=== PATIENT | female | born 1985 ===

== ENCOUNTER 2019-01-19 10:12 | Emergency (ER) | payer OTHER ==
[2019-01-19 10:15] VITALS: BMI 25.4
[2019-01-19 10:17] VITALS: BP 119/73; RESP 17; TEMP 98.8; O2SAT 97
[2019-01-19] MEDS ORDERED: Sodium Chloride 0.9% 1,000 ML IV STA (10:36)
--- NOTE | 2019-01-19 10:51 | ED PDOC ---
History of Present Illness History of Present Illness: 33yo female presents with multiple symptoms, including dizziness, nausea, fatigue, concern for persistent UTI which she had treated along with STI at [facility] in october. Denies fever, body aches, sore throat, vomiting. Notes mild diarrhea and headache. No sick contacts. No [facility] visit recently LMP currently HPI: Influenza Time Seen by Provider: 01/19/19 10:21 Chief Complaint: Cough, Cold, Congestion History Per: Patient Exam Limitations: no limitations Onset/Duration Of Symptoms: Waxing/Waning Symptoms include: cough, diarrhea. denies: fever, bodyaches, sore throat, vomiting, syncope, chest pain, difficulty breathing, seizure, blurry vision Sick Contacts (Context): None Hx Influenza Vaccination: No Risk factors for flu complications: Yes: chronic lung disease (mild asthma), Other (smoker) Past Medical History Reviewed: Historical Data, Nursing Documentation, Vital Signs Vital Signs: Last Vital Signs Temp 98.8 F 01/19/19 10:15 Pulse 92 H 01/19/19 10:15 Resp 17 01/19/19 10:15 BP 119/73 01/19/19 10:15 Pulse Ox 97 01/19/19 10:15 - Medical History PMH: Anemia, Anxiety, Asthma, Back Problems, Depression, Gastrointestinal Ulcer, Migraine, Seizures, Sexually Transmitted Disease (unknown disease) - Surgical History Surgical History: - Family History Family History: States: Unknown Family Hx - Social History Current smoker - smoking cessation education provided: Yes - Immunization History Hx Tetanus Toxoid Vaccination: No Hx Influenza Vaccination: No Hx Pneumococcal Vaccination: No - Home Medications Home Medications: Ambulatory Orders Medication Instructions Recorded Ondansetron ODT [Zofran ODT] 4 mg PO Q6 PRN #10 odt 01/19/19 - Allergies Allergies/Adverse Reactions: Allergies Allergy/AdvReac Type Severity Reaction Status Date / Time aspirin Allergy Verified 11/04/18 23:16 kiwi Allergy Verified 11/04/18 23:16 morphine Allergy Verified 11/04/18 23:16 Penicillins Allergy Verified 11/04/18 23:16 seafood Allergy Intermediate Uncoded 11/04/18 23:16 Review of Systems Constitutional: Negative for: Fever Eyes: Negative for: Conjunctivae Inflammation ENT: Negative for: Nose Discharge, Throat Pain, Throat Swelling Cardiovascular: Negative for: Palpitations Respiratory: Positive for: Cough. Negative for: Shortness of Breath Gastrointestinal: Negative for: Abdominal Pain Genitourinary Female: Positive for: Dysuria. Negative for: Frequency Musculoskeletal: Negative for: Neck Pain, Back Pain Skin: Negative for: Rash Neurological: Positive for: Dizziness. Negative for: Weakness, Numbness, Seizures, Headache Psych: Negative for: Psychosis, Suicidal ideation Physical Exam - Reviewed Nursing Documentation Reviewed: Yes Vital Signs Reviewed: Yes - Physical Exam Appears: Positive for: Non-toxic, No Acute Distress Head Exam: Positive for: ATRAUMATIC, NORMAL INSPECTION, NORMOCEPHALIC Skin: Positive for: Normal Color, Warm, DRY Eye Exam: Positive for: EOMI, Normal appearance, PERRL ENT: Positive for: Normal ENT Inspection Neck: Positive for: Normal, Painless ROM Cardiovascular/Chest: Positive for: Regular Rate, Rhythm Respiratory: Positive for: CNT, Normal Breath Sounds Pulses-Radial (L): 3+/4+ Pulses-Radial (R): 3+/4+ Gastrointestinal/Abdominal: Positive for: Soft. Negative for: Tenderness, Guarding Back: Positive for: Normal Inspection Extremity: Positive for: Normal ROM Neurological/Psych: Positive for: Awake, Alert, Normal Tone Medical Decision Making Medical Decision Making: workup for generalized weakness/malaise initiated r/o flu, sepsis, dehydration, cardiac arrhythmia, UTI, anemia vs other labs reviewed and no clinically significant findings flu neg CXR read by radiologist as negative EKG interpreted by me reeval 220p improved, watching TV without complaints. Explained may need further workup via PMD to r/o other chronic disorders. Indications for return to ER discussed. - Laboratory Results Result Diagrams: 01/19/19 10:55 01/19/19 10:55 - ECG ECG: Positive for: Interpreted By Me ECG Rhythm: Positive for: Normal QRS, Normal ST Segment, Sinus Rhythm. Negative for: ST/T Changes Rate: 75 O2 Sat by Pulse Oximetry: 97 Pulse Ox Interpretation: Normal Disposition - Clinical Impression Clinical Impression: Dizziness, Nausea - Patient ED Disposition Is Patient to be Admitted: No Counseled Patient/Family Regarding: Studies Performed, Diagnosis, Need For Followup, Rx Given - Disposition Disposition: Routine/Home Disposition Time: 14:20 Condition: STABLE Additional Instructions: Followup with PMD in 2-3 days. Return to ER for any worse or new symptoms. Prescriptions: Ondansetron ODT [Zofran ODT] 4 mg PO Q6 PRN #10 odt PRN Reason: Nausea/Vomiting Instructions: Dizziness, Nonvertigo, (DC) Forms: [employer] ([place]occan)
[2019-01-19 11:09] VITALS: PULSE 75
[2019-01-19 11:11] LABS: BASO # 0.1 K/uL (0.0-0.2); BASO % 1.5 % (0.0-2.0); EOS # 0.3 K/uL (0.0-0.7); EOS % 3.6 % (0.0-4.0); HEMOGLOBIN 13.6 g/dL (12.0-16.0); LYMPH # 2.7 K/uL (1.0-4.3); LYMPH % 33.8 % (20.0-40.0); MEAN CELL VOLUME 89.5 fl (81.0-99.0); MEAN CORPUSCULAR HEMOGLOBIN 30.1 pg (27.0-31.0); MEAN CORPUSCULAR HGB CONC 33.6 g/dL (33.0-37.0); MEAN PLATELET VOLUME 8.7 fl (7.2-11.7); MONO # 0.7 K/uL (0.0-0.8); NEUT # 4.2 K/uL (1.8-7.0); NEUT % 52.1 % (50.0-75.0); NRBC % 0.1 % (0.0-0.0); RBC 4.53 Mil/uL (3.80-5.20); RED CELL DISTRIBUTION WIDTH 13.6 % (11.5-14.5)
[2019-01-19 11:20] LABS: BLOOD UREA NITROGEN 9 mg/dl (7-17); CALCIUM 9.4 mg/dL (8.4-10.2); GFR NON-AFRICAN AMERICAN > 60
[2019-01-19 11:25] LABS: SQUAMOUS EPITHIAL 2 /hpf (0-5); URINE BACTERIA RARE (<OCC); URINE BILIRUBIN NEGATIVE (NEGATIVE); URINE BLOOD MODERATE (NEGATIVE); URINE CLARITY SLIGHTY-CLOUDY (Clear); URINE COLOR YELLOW (YELLOW); URINE GLUCOSE (UA) NEG (NEGATIVE); URINE LEUKOCYTE ESTERASE NEG Leu/uL (Negative); URINE PROTEIN NEGATIVE (NEGATIVE); URINE UROBILINOGEN 0.2-1.0 mg/dL (0.2-1.0)
[2019-01-19 11:56] LABS: ALB/GLOB RATIO 1.4 (1.0-2.1); ALBUMIN 4.6 g/dL (3.5-5.0); ALT/SGPT 16 U/L (9-52); AST/SGOT 29 U/L (14-36)
[2019-01-19 12:30] LABS: BARBITURATES, UR NEGATIVE (NEGATIVE); BENZODIAZEPINES, UR NEGATIVE (NEGATIVE); OPIATES, UR NEGATIVE (NEGATIVE); PHENCYCLIDINE, UR NEGATIVE (NEGATIVE)
--- NOTE | 2019-01-19 14:01 | RAD ---
Date of service: 01/19/2019 HISTORY: cough COMPARISON: No prior. TECHNIQUE: Chest PA and lateral FINDINGS: LUNGS: No active pulmonary disease. PLEURA: No significant pleural effusion identified. No pneumothorax apparent. CARDIOVASCULAR: No aortic atherosclerotic calcification present. Normal cardiac size. No pulmonary vascular congestion. OSSEOUS STRUCTURES: No significant abnormalities. VISUALIZED UPPER ABDOMEN: Normal. OTHER FINDINGS: None. IMPRESSION: No active disease.
--- NOTE | 2019-01-20 09:14 | CARD ---
APPROVED REPORT Date of service: 01/19/2019 EKG Measurement Heart [id number] <Conclusion> Normal sinus rhythm Normal ECG
== END 2019-01-19 14:44 | disposition home or self-care (01) ==
LOC: H.ER 10:12
DX: R42 Dizziness and giddiness (principal); R11.0 Nausea; F17.200 Nicotine dependence, unspecified, uncomplicated
CPT/HCPCS: 71046; 80053; 80324; 80345; 80346; 80349; 80353; 80358; 80361; 81003; 81025; 83992; 84484; 85025; 87804; 93005; 99282; J7030